=== PATIENT | female | born 1955 | race Caucasian/White ===

== ENCOUNTER 2018-11-24 06:03 | Day surgery (SDC) | payer OTHER ==
[2018-11-24] MEDS ORDERED: PROPOFOL 40 ML (07:43)
[2018-11-24] MEDS ORDERED: LIDOCAINE 100 MG SYRINGE (07:43)
== END 2018-11-24 11:42 | disposition home or self-care (01) ==
LOC: GIL 06:03
DX: Z12.11 Encounter for screening for malignant neoplasm of colon (principal); K64.8 Other hemorrhoids; K57.30 Diverticulosis of large intestine without perforation or abscess without bleeding; I10 Essential (primary) hypertension; E78.5 Hyperlipidemia, unspecified
CPT/HCPCS: 45378